=== PATIENT | female | born 1965 | race American Indian/Alaskan Native ===

== ENCOUNTER 2016-08-13 11:19 | Day surgery (SDC) | payer OTHER ==
[~2016-08-13 11:19] MED LIST: CYCLOGYL OS ONE; GONAK OS ONE; MYDRIACYL OS ONE; NEOFRIN OS ONE; PONTOCAINE IJ ONE; XYLOCAINE 2%/EPI 1:100,000 INFILTRATI ONE
[2016-08-13] MEDS ORDERED: NEOFRIN OS ONE (11:55)
[2016-08-13] MEDS ORDERED: MYDRIACYL OS ONE (11:55)
[2016-08-13] MEDS ORDERED: CYCLOGYL OS ONE (11:55)
[2016-08-13] MEDS ORDERED: PONTOCAINE IJ ONE (11:55)
[2016-08-13] MEDS ORDERED: XYLOCAINE 2%/EPI 1:100,000 INFILTRATI ONE (12:55)
[2016-08-13] MEDS ORDERED: GONAK OS ONE (13:01)
[2016-08-13 13:24] VITALS: BP 105/60
[2016-08-13] MEDS ORDERED: TOBRADEX OS ONE (13:26)
== END 2016-08-13 11:20 | disposition home or self-care (01) ==
LOC: OR 11:19
PROVIDERS: ATTEND Specialist
DX: E11.3592 Type 2 diabetes mellitus with proliferative diabetic retinopathy without macular edema, left eye (principal)
CPT/HCPCS: 82962